=== PATIENT | female | born 1965 | race Caucasian/White ===

== ENCOUNTER 2024-12-08 17:37 | Emergency (ER) | payer BC ==
[2024-12-08 17:48] VITALS: BP 162/85; PULSE 88
[2024-12-08] MEDS: Diphtheria,Pertussis(Acell),Tetanus Vaccine 0.5 ML Syringe IM ONE (17:55)
== END 2024-12-08 19:22 | disposition home or self-care (01) ==
LOC: JD.ED 17:37
DX: F43.21 Adjustment disorder with depressed mood (principal); S50.812A Abrasion of left forearm, initial encounter; Z23 Encounter for immunization; I10 Essential (primary) hypertension; E78.00 Pure hypercholesterolemia, unspecified; K21.9 Gastro-esophageal reflux disease without esophagitis; Z79.899 Other long term (current) drug therapy; Z79.82 Long term (current) use of aspirin; W25.XXXA Contact with sharp glass, initial encounter
CPT/HCPCS: 90471; 90715; 99283; 99284-25